=== PATIENT | female | born 1985 | race Caucasian/White ===

== ENCOUNTER 2017-03-24 14:12 | Emergency (ER) | payer SELFPAY ==
[~2017-03-24] VITALS: Ht 170.2 cm; Wt 55.5 kg
[~2017-03-24 14:12] MED LIST: prenatal vitamin PO
[2017-03-24] MEDS ORDERED: NS 1,000 ML IV ONE (15:45)
[2017-03-24] MEDS ORDERED: PANTOPRAZOLE 40MG INJ (PROTONIX) (C9113) IV ONE (15:45)
[2017-03-24 16:04] LABS: BASO # 0.1 K/mm3 (0.0-0.2); EOS # 0.4 K/mm3 (0.0-0.50); EOS % 4.6 % (0.0-3.0); LARGE UNSTAINED CELL # 0.1 K/mm3 (0.0-0.4); LARGE UNSTAINED CELL % 0.9 % (0.0-4.0); LYMPH % 24.2 % (24.0-44.0); MEAN CORPUSCULAR HEMOGLOBIN 33.3 pg (27.0-33.0); MEAN CORPUSCULAR HGB CONC 33.8 g/dl (32.0-36.5); MEAN CORPUSCULAR VOLUME 98.4 fl (80.0-96.0); MONO # 0.3 K/mm3 (0.0-0.8); MONO % 4.3 % (0.0-5.0); NEUTROPHILS # 5.2 K/mm3 (1.8-7.7); NEUTROPHILS % 65.1 % (36.0-66.0); PLATELET COUNT, AUTOMATED 270 k/mm3 (150-450)
[2017-03-24 16:27] LABS: ALBUMIN 4.6 GM/DL (3.2-5.2); ALBUMIN/GLOBULIN RATIO 1.44 (1.00-1.93); ALKALINE PHOSPHATASE 52 U/L (45-117); ALT/SGPT 29 U/L (12-78); AMYLASE 30 U/L (25-115); ANION GAP 9 MEQ/L (8-16); AST/SGOT 22 U/L (15-37); BILIRUBIN,DIRECT 0.1 MG/DL (0.0-0.2); BILIRUBIN,TOTAL 0.6 MG/DL (0.2-1.0); BLOOD UREA NITROGEN 8 MG/DL (7-18); CALCIUM LEVEL 9.1 MG/DL (8.5-10.1); CARBON DIOXIDE LEVEL 28 MEQ/L (21-32); CHLORIDE LEVEL 105 MEQ/L (98-107); CREATININE FOR GFR 0.51 MG/DL (0.55-1.02); GLOMERULAR FILTRATION RATE > 60.0 (>60); GLUCOSE, FASTING 81 MG/DL (70-105); SODIUM LEVEL 142 MEQ/L (136-145); TOTAL PROTEIN 7.8 GM/DL (6.4-8.2)
[2017-03-24 16:29] LABS: POTASSIUM SERUM 4.1 MEQ/L (3.5-5.1)
--- NOTE | 2017-03-24 16:55 | REP ---
Clinical: Acute right upper quadrant abdominal pain. Technique: Smith scale ultrasound using curved array transducer. Findings: The liver and pancreas are normal in contour, size, and echogenicity without focal hepatic or pancreatic lesions identified. The gallbladder is normal without gallstones, wall thickening or pericholecystic fluid. No biliary ductal dilatation is appreciated, and the common bile duct measures 2.9 mm diameter. The right kidney is normal in reniform shape without hydronephrosis and measures 11.1 x 4.2 x 5.6 cm. No ascites. Visualized portions of the abdominal aorta normal. Impression: Normal right upper quadrant and gallbladder abdominal ultrasound. Signed by Duke Andres MD 03/24/2017 04:46 P
[2017-03-24] MEDS ORDERED: PANT40TA2 PO (17:20)
[2017-03-24 17:29] VITALS: BP 129/71
--- NOTE | 2017-03-25 17:21 | ECGEPIP ---
Stationary ECG Study [facility] [place] - ED Test Date: 2017-03-24 Pat Name: DEO MIRANDA Department: Room: - Gender: F Facility Maintenance Helper: roddy : [id number] Requested By: DENISE WHITE PA-C Order Number: [id number] Reading MD: Annabelle Wise Measurements Intervals [place] Rate: 61 P: 0 W[place]: 170 QRS: 79 QRSD: 115 T: 54 QT: 416 QTc: 422 Interpretive Statements SINUS RHYTHM INCOMPLETE RIGHT BUNDLE BRANCH BLOCK NO PRIOR FOR COMPARISON Electronically Signed On 03-25-2017 17:21:14 EDT by Annabelle Wise
== END 2017-03-24 17:30 | disposition home or self-care (01) ==
LOC: M ED 14:12
DX: K29.00 Acute gastritis without bleeding (principal); K21.9 Gastro-esophageal reflux disease without esophagitis; R00.2 Palpitations; F17.210 Nicotine dependence, cigarettes, uncomplicated; Z98.890 Other specified postprocedural states; Z83.79 Family history of other diseases of the digestive system
CPT/HCPCS: 76705; 80048; 80076; 81001; 81025; 82150; 82550; 82553; 83690; 85025; 93005; 96374; 99284; C9113

== ENCOUNTER 2017-10-05 05:17 | Emergency (ER) | payer OTHER, SELFPAY | END 2017-10-05 07:22 | disposition home or self-care (01) | LOC: M ED 05:17 | DX: O99.612 Diseases of the digestive system complicating pregnancy, second trimester (principal); K02.9 Dental caries, unspecified; K04.7 Periapical abscess without sinus; Z3A.00 Weeks of gestation of pregnancy not specified; Z87.891 Personal history of nicotine dependence | CPT/HCPCS: 99283 ==

== ENCOUNTER → 2017-10-31 | Outpatient (CLI) | payer OTHER | LOC: M SMT 11:06 | DX: Z34.80 Encounter for supervision of other normal pregnancy, unspecified trimester (principal); Z3A.00 Weeks of gestation of pregnancy not specified | CPT/HCPCS: 76811 ==

== ENCOUNTER → 2017-11-06 | Outpatient (CLI) | payer OTHER ==
[2017-11-06 18:47] LABS: BASO % 0.5 % (0.0-1.0); EOS # 0.3 10^3/uL (0.0-0.50); EOS % 3.8 % (0.0-3.0); HEMATOCRIT 32.8 % (36.0-47.0); HEMOGLOBIN 11.1 g/dl (12.0-15.5); IMMATURE GRANULOCYTE % 0.7 % (0-3.0); LYMPH # 1.5 10^3/uL (1.5-4.5); LYMPH % 20.3 % (24.0-44.0); MEAN CORPUSCULAR HEMOGLOBIN 32.8 pg (27.0-33.0); MEAN CORPUSCULAR HGB CONC 33.8 g/dl (32.0-36.5); MONO # 0.5 10^3/uL (0.0-0.8); MONO % 6.2 % (0.0-5.0); NEUTROPHILS # 5.1 10^3/uL (1.8-7.7); NEUTROPHILS % 68.5 % (36.0-66.0); PLATELET COUNT, AUTOMATED 282 10^3/uL (150-450); RED BLOOD COUNT 3.38 10^6/uL (4.00-5.40); RED CELL DISTRIBUTION WIDTH 12.7 % (11.5-14.5); WHITE BLOOD COUNT 7.5 10^3/uL (4.0-10.0)
[2017-11-06 21:24] LABS: CHLAMYDIA DNA AMPLIFICATION NEGATIVE (NEGATIVE); GC DNA AMPLIFICATION NEGATIVE (NEGATIVE)
[2017-11-08 10:20] LABS: RUBELLA IgG QUALITATIVE IMMUNE (IMMUNE)
[2017-11-08 10:27] LABS: HBsAg Prenatal NEGATIVE (NEGATIVE)
[2017-11-08 10:50] LABS: HIV 1&2 SCREEN CENTAUR NEGATIVE (NEGATIVE)
[2017-11-08 10:50] LABS: HEPATITIS C VIRUS ABY INDEX < 0.0 INDEX (<0.8)
== END ==
LOC: M SMT 10:51
DX: Z36.89 Encounter for other specified antenatal screening (principal); Z3A.00 Weeks of gestation of pregnancy not specified
CPT/HCPCS: 86762

== ENCOUNTER → 2017-11-27 | Outpatient (CLI) | payer OTHER | LOC: M SMT 09:19 | DX: Z34.82 Encounter for supervision of other normal pregnancy, second trimester (principal); Z3A.22 22 weeks gestation of pregnancy | CPT/HCPCS: 76816 ==

== ENCOUNTER → 2018-01-02 | Outpatient (CLI) | payer OTHER ==
[2018-01-02 14:02] LABS: HEMATOCRIT 28.9 % (36.0-47.0); HEMOGLOBIN 9.8 g/dl (12.0-15.5); MEAN CORPUSCULAR HEMOGLOBIN 32.8 pg (27.0-33.0); MEAN CORPUSCULAR HGB CONC 33.9 g/dl (32.0-36.5); MEAN CORPUSCULAR VOLUME 96.7 fl (80.0-96.0); PLATELET COUNT, AUTOMATED 271 10^3/uL (150-450); RED BLOOD COUNT 2.99 10^6/uL (4.00-5.40); RED CELL DISTRIBUTION WIDTH 12.9 % (11.5-14.5); WHITE BLOOD COUNT 9.7 10^3/uL (4.0-10.0)
[2018-01-02 14:09] LABS: GLUCOSE CHALLENGE TEST 1 HOUR 110 MG/DL (LESS THAN 140)
== END ==
LOC: M SMT 09:54
DX: Z36.89 Encounter for other specified antenatal screening (principal); Z3A.00 Weeks of gestation of pregnancy not specified
CPT/HCPCS: 82950

== ENCOUNTER → 2018-03-05 | Outpatient (REF) | payer OTHER | LOC: M LAB REF 17:14 | DX: Z34.83 Encounter for supervision of other normal pregnancy, third trimester (principal) ==

== ENCOUNTER 2018-03-28 12:29 | Inpatient (IN) | payer OTHER ==
[2018-03-28] MEDS: PENICILLIN G POTASSIUM IV 5 MU in D5W MINI-BAG PLUS 100 ML IV (12:36)
[2018-03-28] MEDS ORDERED: OXYTOCIN 30 UNITS IN 0.9% NaCl 500ML IV BAG (J2590) As Ordered ×2 (12:58→13:51)
[2018-03-28 13:25] LABS: HEMOGLOBIN 12.6 g/dl (12.0-15.5); MEAN CORPUSCULAR HEMOGLOBIN 32.2 pg (27.0-33.0); MEAN CORPUSCULAR HGB CONC 34.1 g/dl (32.0-36.5); MEAN CORPUSCULAR VOLUME 94.6 fl (80.0-96.0); PLATELET COUNT, AUTOMATED 258 10^3/uL (150-450); RED BLOOD COUNT 3.91 10^6/uL (4.00-5.40); WHITE BLOOD COUNT 13.3 10^3/uL (4.0-10.0)
[2018-03-28] MEDS: OXYTOCIN DRIP 30 UNITS in APPROPRIATE DILUENT 1 EA IV (13:49)
[2018-03-28] MEDS ORDERED: DIBUCAINE 1% OINTMENT 30GM TOP (14:00)
[2018-03-28] MEDS ORDERED: RHOGAM 300 MCG (1500 IU) INJ (J2790) IM (14:00)
[2018-03-28] MEDS ORDERED: METHYLERGONOVINE MALEATE 0.2 MG TAB PO (14:00)
[2018-03-28] MEDS ORDERED: MEASLES,MUMPS,RUBELLA VACCINE INJ (MMR-II) (90707) SC (14:00)
[2018-03-28] MEDS ORDERED: ONDANSETRON 4MG/2ML VIAL (J2405) IV (14:00)
[2018-03-28] MEDS ORDERED: DOCUSATE SODIUM 100 MG CAP PO (14:00)
[2018-03-28] MEDS ORDERED: ANUSOL HC CREAM 30GM TOP (14:00)
[2018-03-28] MEDS: METHYLERGONOVINE MALEATE 0.2 MG/ML VIAL (J2210) IM (14:00)
[2018-03-28] MEDS: IBUPROFEN 800 MG TAB PO (14:36)
[2018-03-28] MEDS ORDERED: PENICILLIN G POTASSIUM IV 2.5 MU in APPROPRIATE DILUENT 1 EA IV (16:45)
[2018-03-29] MEDS: IBUPROFEN 800 MG TAB PO ×3 (00:27→17:37)
[2018-03-29] MEDS ORDERED: METHYLERGONOVINE MALEATE 0.2 MG/ML VIAL (J2210) As Ordered (07:32)
[2018-03-29] MEDS ORDERED: INFLUENZA QUADRIVALENT PF VACCINE 0.5ML SYRINGE (90686) IM (09:00)
[2018-03-29] MEDS: PRENATAL VITAMINS CHEWABLE TABLET PO (09:20)
[2018-03-29] MEDS: ACETAMINOPHEN 500 MG TAB PO ×2 (13:26→21:03)
[2018-03-30] MEDS: IBUPROFEN 800 MG TAB PO (06:10)
[2018-03-30] MEDS: INFLUENZA QUADRIVALENT PF VACCINE 0.5ML SYRINGE (90686) IM (08:15)
[2018-03-30] MEDS: PRENATAL VITAMINS CHEWABLE TABLET PO (08:15)
== END 2018-03-30 10:00 | disposition home or self-care (01) | DRG 560 ==
LOC: M LDI 12:29 → M OBS 17:56
PROVIDERS: Advanced Practice Midwife
PROC: 10E0XZZ Delivery of Products of Conception, External Approach (ICD-10-PCS; principal; 2018-03-28)
DX: O80 Encounter for full-term uncomplicated delivery (principal); Z37.0 Single live birth; Z3A.39 39 weeks gestation of pregnancy

== ENCOUNTER 2019-01-26 19:07 | Emergency (ER) | payer OTHER ==
[~2019-01-26] VITALS: Ht 170.2 cm; Wt 54.5 kg
[~2019-01-26 19:07] MED LIST changes: +AMOX500C PO; +COLA100C5 PO; +HYDR-3715 PO; +IBUP-1114 PO; +IRON27TA2 PO; +MAPA500T2 PO; +PANT40TA3 PO; +PRENTAB9 PO; +RANI1TAB6 PO; +TUMS500C PO
[2019-01-26 19:18] VITALS: BP 110/65
[2019-01-26] MEDS ORDERED: NS 1,000 ML IV ONE (20:00)
== END 2019-01-26 20:44 | disposition home or self-care (01) ==
LOC: M ED 19:07
DX: F10.129 Alcohol abuse with intoxication, unspecified (principal); Z91.030 Bee allergy status

== ENCOUNTER → 2019-08-22 | Outpatient (REF) | payer OTHER ==
[~2019-08-22] MED LIST changes: +RANI-397 PO; -RANI1TAB6 PO
== END ==
LOC: M LAB REF 15:57
PROVIDERS: ATTEND Physician Assistant
DX: J02.9 Acute pharyngitis, unspecified (principal)

== ENCOUNTER 2022-11-04 16:43 | Emergency (ER) | payer OTHER ==
[~2022-11-04] VITALS: Ht 167.6 cm; Wt 60.7 kg
[~2022-11-04 16:43] MED LIST changes: +PANT40TA29 PO; -PANT40TA3 PO
[2022-11-04] MEDS ORDERED: ACETAMINOPHEN 1000MG 100ML IV BAG IV ONE (17:10)
[2022-11-04] MEDS ORDERED: NS 1,000 ML IV ONE (17:10)
[2022-11-04 17:54] LABS: BASO % 0.3 % (0.0-1.0); EOS # 0.1 10^3/uL (0.0-0.5); HEMATOCRIT 35.3 % (36.0-47.0); HEMOGLOBIN 12.1 g/dl (12.0-15.5); LYMPH # 0.6 10^3/uL (1.5-5.0); LYMPH % 9.8 % (24.0-44.0); MEAN CORPUSCULAR HEMOGLOBIN 33.4 pg (27.0-33.0); MEAN CORPUSCULAR HGB CONC 34.3 g/dl (32.0-36.5); MEAN CORPUSCULAR VOLUME 97.5 fl (80.0-96.0); MONO # 0.4 10^3/uL (0.0-0.8); MONO % 5.6 % (2.0-8.0); NEUTROPHILS # 5.3 10^3/uL (1.5-8.5); NEUTROPHILS % 81.8 % (36.0-66.0); PLATELET COUNT, AUTOMATED 164 10^3/uL (150-450); RED BLOOD COUNT 3.62 10^6/uL (4.00-5.40); WHITE BLOOD COUNT 6.4 10^3/uL (4.0-10.0)
[2022-11-04 17:55] LABS: URINE PREG TEST NEGATIVE (NEGATIVE)
[2022-11-04] MEDS ORDERED: ISOVUE-370 76% 100ML VIAL As Ordered ONE (18:00)
[2022-11-04 18:10] LABS: LIPASE 23 U/L (12-53)
[2022-11-04 18:12] LABS: ALBUMIN 3.3 G/DL (3.2-5.2); ALKALINE PHOSPHATASE 102 U/L (46-116); ALT/SGPT 18 U/L (7.0-40); AST/SGOT 30 U/L (<34); BILIRUBIN,DIRECT 0.2 MG/DL (<0.4); BILIRUBIN,TOTAL 0.4 MG/DL (0.3-1.2); TOTAL PROTEIN 6.2 G/DL (5.7-8.2)
[2022-11-04] MEDS ORDERED: cefTRIAXone SOD 1 GM in D5W MINI-BAG PLUS 50 ML IV ONE (18:55)
[2022-11-04] MEDS ORDERED: BACT800T5 PO (19:10)
[2022-11-04] MEDS ORDERED: FLOM0.4C39 PO (19:10)
[2022-11-04] MEDS ORDERED: ONDA4TAB6 PO (19:10)
[2022-11-04] MEDS ORDERED: IBUP-1022 PO (19:10)
[2022-11-04 19:30] LABS: BLOOD UREA NITROGEN 6 MG/DL (9-23); CALCIUM LEVEL 8.3 MG/DL (8.5-10.1); CARBON DIOXIDE LEVEL 26 MMOL/L (20-31); CHLORIDE LEVEL 104 MMOL/L (98-107); CREATININE FOR GFR 0.61 MG/DL (0.55-1.30); GLOMERULAR FILTRATION RATE > 60.0 (>60); GLUCOSE, FASTING 93 MG/DL (60-100); POTASSIUM SERUM 3.3 MMOL/L (3.5-5.1); SODIUM LEVEL 138 MMOL/L (136-145)
[2022-11-04 20:20] LABS: MAGNESIUM LEVEL 1.7 MG/DL (1.8-2.4)
[2022-11-04] MEDS ORDERED: CEFP200T PO (20:25)
[2022-11-04] MEDS ORDERED: POTASSIUM CHLORIDE 10MEQ SR TABLET PO ONE (20:25)
[2022-11-04] MEDS ORDERED: MAGNESIUM OXIDE 400MG TAB (MAG-OX) PO ONE (20:25)
[2022-11-04 20:26] VITALS: BP 138/67
== END 2022-11-04 20:32 | disposition home or self-care (01) ==
LOC: M ED 16:43
DX: N10 Acute pyelonephritis (principal); E87.6 Hypokalemia; E83.42 Hypomagnesemia; F10.10 Alcohol abuse, uncomplicated; Z91.030 Bee allergy status; Z79.2 Long term (current) use of antibiotics
CPT/HCPCS: 74177; 80047; 80048; 80076; 81001; 83605; 83690; 83735; 84703; 85025; 87040; 87077; 87088; 87186; 96374; 96375; 99284; J0131; J0696; Q9967

== ENCOUNTER 2022-11-06 09:16 | Emergency (ER) | payer OTHER ==
[~2022-11-06] VITALS: Ht 167.6 cm; Wt 60.3 kg
[~2022-11-06 09:16] MED LIST changes: +BACT800T5 PO; +CEFP200T PO; +FLOM0.4C39 PO; +IBUP-1022 PO; +ONDA4TAB6 PO
[2022-11-06] MEDS ORDERED: cefTRIAXone SOD 1 GM in D5W MINI-BAG PLUS 50 ML IV ONE (10:30)
[2022-11-06 10:33] LABS: BASO % 0.5 % (0.0-1.0); EOS # 0.1 10^3/uL (0.0-0.5); EOS % 1.3 % (0.0-3.0); HEMATOCRIT 35.8 % (36.0-47.0); HEMOGLOBIN 12.5 g/dl (12.0-15.5); LYMPH # 0.6 10^3/uL (1.5-5.0); LYMPH % 11.3 % (24.0-44.0); MEAN CORPUSCULAR HEMOGLOBIN 33.8 pg (27.0-33.0); MEAN CORPUSCULAR HGB CONC 34.9 g/dl (32.0-36.5); MEAN CORPUSCULAR VOLUME 96.8 fl (80.0-96.0); MONO # 0.8 10^3/uL (0.0-0.8); MONO % 14.7 % (2.0-8.0); NEUTROPHILS % 71.8 % (36.0-66.0); PLATELET COUNT, AUTOMATED 159 10^3/uL (150-450); WHITE BLOOD COUNT 5.6 10^3/uL (4.0-10.0)
[2022-11-06 11:27] VITALS: BP 131/92
[2022-11-06 12:00] LABS: BLOOD UREA NITROGEN < 5 MG/DL (9-23); CALCIUM LEVEL 8.7 MG/DL (8.5-10.1); CARBON DIOXIDE LEVEL 28 MMOL/L (20-31); CHLORIDE LEVEL 103 MMOL/L (98-107); GLOMERULAR FILTRATION RATE > 60.0 (>60); GLUCOSE, FASTING 103 MG/DL (60-100); POTASSIUM SERUM 3.5 MMOL/L (3.5-5.1); SODIUM LEVEL 137 MMOL/L (136-145)
== END 2022-11-06 12:40 | disposition home or self-care (01) ==
LOC: M ED 09:16
DX: N10 Acute pyelonephritis (principal); A41.50 Gram-negative sepsis, unspecified; I45.10 Unspecified right bundle-branch block; F41.9 Anxiety disorder, unspecified; F17.200 Nicotine dependence, unspecified, uncomplicated; F12.10 Cannabis abuse, uncomplicated; F10.10 Alcohol abuse, uncomplicated; Z91.030 Bee allergy status; Z79.2 Long term (current) use of antibiotics
CPT/HCPCS: 80048; 85025; 87040; 93005; 96365; 99284; J0696

== ENCOUNTER → 2023-08-25 | Outpatient (REF) | payer OTHER | LOC: M WUC 11:18 | PROVIDERS: ATTEND Physician Assistant | DX: R11.2 Nausea with vomiting, unspecified (principal) ==

== ENCOUNTER → 2024-04-09 | Outpatient (REF) | payer OTHER ==
[~2024-04-09] MED LIST changes: +ONDA-282 PO; -ONDA4TAB6 PO
[2024-04-11 15:18] LABS: HPV APTIMA Detected (Not Detected)
== END ==
LOC: M SFHCPLAZ 15:00
PROVIDERS: ATTEND Family Medicine
DX: Z12.4 Encounter for screening for malignant neoplasm of cervix (principal)

== ENCOUNTER → 2024-05-03 | Outpatient (REF) | payer OTHER | LOC: M PLALAB 15:07 | PROVIDERS: ATTEND Advanced Practice Midwife | DX: R87.613 High grade squamous intraepithelial lesion on cytologic smear of cervix (HGSIL) (principal); R87.810 Cervical high risk human papillomavirus (HPV) DNA test positive ==

== ENCOUNTER → 2024-05-23 | Outpatient (REF) | payer OTHER | LOC: M PLALAB 13:19 | PROVIDERS: ATTEND Advanced Practice Midwife | DX: L98.9 Disorder of the skin and subcutaneous tissue, unspecified (principal); N87.9 Dysplasia of cervix uteri, unspecified; B97.7 Papillomavirus as the cause of diseases classified elsewhere; N90.7 Vulvar cyst ==

== ENCOUNTER → 2024-08-06 | Outpatient (REF) | payer OTHER | LOC: M SFHCWAGY 17:10 | PROVIDERS: ATTEND Obstetrics & Gynecology | DX: R87.613 High grade squamous intraepithelial lesion on cytologic smear of cervix (HGSIL) (principal); N72 Inflammatory disease of cervix uteri ==

== ENCOUNTER → 2025-01-31 | Outpatient (REF) | payer OTHER ==
[~2025-01-31] MED LIST changes: -FLOM0.4C39 PO; +TAMS-18 PO
== END ==
LOC: M PLALAB 16:15
PROVIDERS: ATTEND Advanced Practice Midwife
DX: R87.613 High grade squamous intraepithelial lesion on cytologic smear of cervix (HGSIL) (principal); R87.810 Cervical high risk human papillomavirus (HPV) DNA test positive

== ENCOUNTER → 2025-05-28 | Outpatient (REF) | payer OTHER ==
[~2025-05-28] MED LIST changes: -IBUP-1022 PO; +IBUP600T42 PO
[2025-05-28 12:42] LABS: Trichomonas vaginalis (AMP) NOT DETECTED (NEGATIVE)
[2025-05-28 13:06] LABS: GC DNA AMPLIFICATION NEGATIVE (NEGATIVE)
[2025-05-30 16:20] LABS: HPV APTIMA Not Detected (Not Detected)
== END ==
LOC: M SFHCWAGY 10:24
PROVIDERS: ATTEND Advanced Practice Midwife
DX: Z11.3 Encounter for screening for infections with a predominantly sexual mode of transmission (principal); R87.610 Atypical squamous cells of undetermined significance on cytologic smear of cervix (ASC-US)

== ENCOUNTER → 2025-05-28 | Outpatient (CLI) | payer OTHER | LOC: M WHC 09:00 | PROVIDERS: ATTEND Advanced Practice Midwife | DX: Z12.31 Encounter for screening mammogram for malignant neoplasm of breast (principal); R92.323 Mammographic fibroglandular density, bilateral breasts ==